=== PATIENT | male | born 1975 | race Caucasian/White ===

== ENCOUNTER 2016-08-10 10:04 | Emergency (ER) | payer MEDICAID ==
--- NOTE | 2016-08-10 10:06 | ED Physician Chart ---
Chief Complaint/HPI - Patient Information Date Seen:: 08/10/16 Time Seen:: 10:06 Chief Complaint:: cough History of Present Illness:: 41-year-old male, nonsmoker, history of insulin-dependent diabetes mellitus type 2, recent history of pneumonia several months ago, complains of acute, worsening, nonproductive, worse in the morning, moderate, cough 4 days. Has associated upper respiratory congestion. Allergies:: Allergies Allergy/AdvReac Type Severity Reaction Status Date / Time MDX No Known Allergies - Nka Allergy Verified 07/20/13 21:26 [No Known Allergies - Nka] Historian:: Patient Review:: Nurse's Note Reviewed Review of Systems - Review of Systems Other: Complete system review otherwise unremarkable except as noted in HPI. Past Medical History - Past Medical History Past Medical History: DM Family History: None Social History: Non Smoker, No Alcohol, No Drug Use, Employed Surgical History: None Psychiatricy History: None Medication: Reviewed Family Medical History - Family Member Mother History Unknown: Yes Ethnicity: Hx Family Cancer: No Hx Family Coronary Artery Disease: No Hx Family Congestive Heart Failure: No Hx Family Hypertension: Yes Hx Family Diabetes: Yes Physical Exam - Physical Examination Other:: INITIAL VITAL SIGNS: Reviewed by me GENERAL: Alert and interactive. No acute distress HEAD: Head is normocephalic and atraumatic EYES: EOMI. . No scleral icterus. No conjunctival injection ENT: Moist mucous membranes. NECK: Supple. No masses. Full range of motion RESPIRATORY: No tachypnea. Prolonged expiratory phase bilaterally. No wheezing , rales, or rhonchi CV: Regular rate and rhythm. No murmurs, rubs, or gallops ABDOMEN: Soft, non-distended, non-tender. No guarding. No rebound. No masses. EXTREMITIES: No deformity. No cyanosis. No edema. SKIN: Warm and dry. No obvious rashes. NEUROLOGIC: Alert and oriented. Face is symmetric. Speech is normal. Moves all extremities equally. Motor and sensory distally intact. Labs/Radiology/EKG Results - Radiology Results Results: Single AP VIEW Portable Chest X-ray was interpreted independently and contemporaneously by Cayden Jones MD: No cardiomegaly Normal mediastinum No lung infiltrates No pneumothorax No soft tissue or bony abnormalities ED Septic Shock - . Is Septic Shock (SBP<90, OR Lactate>4 mmol\L) present?: No Reassessment (Disposition) - Reassessment Reassessment:: The patient's blood pressure was elevated (>120/80) but appears stable without evidence of hypertensive emergency or urgency. The patient was counseled about the risks hypertension urged to pursue outpatient monitoring and therapy within a week with her primary care physician. Patient has acute bronchitis. Has a history of recent pneumonia. We'll cover with Z-Galileo. Also gave from using with codeine antitussive. Gave antitussive here in the ER as well. Symptoms improved. Follow-up PCP 1-2 days. Gave return to ER precautions. Patient understands and agrees with the plan. - Diagnosis Diagnosis:: Acute bronchitis Diabetes mellitus type 2, insulin-dependent Pre-hypertension - Aftercare/Follow up Instructions Aftercare/Follow-Up Instructions:: Counseled pt regarding lab results/diagnosis & need follow up, Refer to Discharge Instructions Medication Prescribed:: Azithromycin Promethazine/codeine antitussive syrup - Patient Disposition Discharge/Transfer:: Home Time Responded:: 10:39 Time:: 10:44 Condition at Disposition:: Improved ED Discharge Plan - Patient Disposition Admit/Discharge/Transfer: PT DISCHARGED HOME Condition at Disposition: Improved Instructions: Bronchitis, [id number]
[2016-08-10] MEDS ORDERED: Codeine/Promethazine Susp 5 mL UDC PO STA (10:22)
[2016-08-10] MEDS ORDERED: Codeine/Promethazine Susp 5 mL UDC ONE (10:28)
[2016-08-10 10:29] VITALS: BP 143/84
--- NOTE | 2016-08-10 11:20 | Diagnostic Imaging Report ---
Portable chest x-ray History: Cough Allowing for portable technique the heart size is normal. No focal pulmonary parenchymal processes. No hilar or mediastinal abnormalities. Impression: No acute abnormalities.
== END 2016-08-10 10:40 | disposition home or self-care (01) ==
LOC: ER 10:04
DX: J20.9 Acute bronchitis, unspecified (principal); E11.8 Type 2 diabetes mellitus with unspecified complications; Z79.4 Long term (current) use of insulin
CPT/HCPCS: 71010-TC; Z7502

== ENCOUNTER 2016-10-18 10:50 | Emergency (ER) | payer MEDICAID ==
[2016-10-18 11:32] LABS: % BASOPHILS 1.1 % (0.0-2.0); % EOSINOPHILS 4.1 % (0.0-5.0); % LYMPHOCYTES 28.2 % (20.0-50.0); % MONOCYTES 6.3 % (2.0-10.0); % NEUTROPHILS 60.3 % (40.0-80.0); MEAN CELL VOLUME 80.6 fl (80-99); MEAN CORPUSCULAR HEMOGLOBIN 27.5 pg (26.0-30.0); MEAN CORPUSCULAR HGB CONC 34.1 pg (28.0-36.0); MEAN PLATELET VOLUME 8.2 fl; NEUTROPHILE ABSOLUTE 4.5 Th/cmm (1.8-8.0); PLATELET COUNT 190 Th/cmm (150-400); RED BLOOD COUNT 4.25 Mil/cmm (4.30-5.70); RED CELL DISTRIBUTION WIDTH 13.4 % (11.5-20.0); WHITE BLOOD COUNT 7.5 Th/cmm (4.8-10.8)
[2016-10-18 11:34] LABS: HEMATOCRIT 34.3 % (39.0-49.0); HEMOGLOBIN 11.7 gm/dL (13.2-17.3)
--- NOTE | 2016-10-18 11:48 | ED Physician Chart ---
Chief Complaint/HPI - Patient Information Date Seen:: 10/18/16 Time Seen:: 11:15 Chief Complaint:: double vision History of Present Illness:: THIS IS A 41 YO MALE DIABETIC WITH A BRIEF PERIOD OF DOUBLE VISION THIS AM. HE STATES THAT HE HAS NEVER HAD THAT HAPPEN BEFORE. HE ALSO IS CONCERNED THAT HE VOMITED THIS AM AND STATES THAT HIS SUGAR WAS OVER 200. HE DENIES FEVER, HEADACHE, CHEST PAIN AND ABDOMINAL PAIN. THE PATIENT STATES THAT HE HAS NOT HAD ANY DIARRHEA OR CONSTIPATION. Allergies:: Allergies Allergy/AdvReac Type Severity Reaction Status Date / Time No Known Allergies Allergy Verified 08/10/16 10:14 Vitals:: Vital Signs - 8 hr 10/18/16 11:07 Temp 98.4 F HR 83 RR 17 BP 167/86 O2 Sat % 98 Historian:: Patient, Family Member Review:: Nurse's Note Reviewed Review of Systems - Review of Systems General/Constitutional: No fever, No chills, No weight loss, No weakness, No diaphoresis, No edema, No loss of appetite Skin: No skin lesions, No rash, No bruising Head: No headache, No light-headedness Eyes: No loss of vision, No pain, Diplopia, No diplopia ENT: No earache, No nasal drainage, No sore throat, No tinnitus Neck: No neck pain, No swelling, No thyromegaly, No stiffness, No mass noted Cardio Vascular: No chest pain, No palpitations, No PND, No orthopnea, No edema Pulmonary: No SOB, No cough, No sputum, No wheezing GI: Nausea, Vomiting, No diarrhea, No pain, No melena, No hematochezia, No constipation, No hematemesis G/U: No dysuria, No frequency, No hematuria Musculoskeletal: No bone or joint pain, No back pain, No muscle pain Endocrine: No polyuria, No polydipsia Psychiatric: No prior psych history, No depression, No anxiety, No suicidal ideation Hematopoietic: No bruising, No lymphadenopathy Allergic/Immuno: No urticaria, No angioedema Neurological: No syncope, No focal symptoms, No weakness, No paresthesia, No headache, No seizure, No dizziness, No confusion, No vertigo Past Medical History - Past Medical History Obtainable: Yes Past Medical History: DM Family History: None Social History: Non Smoker, No Alcohol, No Drug Use, , Employed Surgical History: other (RIGHT UPPER EXTERMITY ID SURGERY) Family Medical History - Family Member Mother History Unknown: Yes Ethnicity: Hx Family Cancer: No Hx Family Coronary Artery Disease: No Hx Family Congestive Heart Failure: No Hx Family Hypertension: Yes Hx Family Stroke: No Hx Family Diabetes: Yes Hx Family HIV: No Hx Family Hepatitis: No Hx Family Psychiatric Problems: No Other Medical History: patient denies medical history Physical Exam - Physical Examination General/Constitutional: Awake, Well-developed, well-nourished, Alert, No distress, GCS 15, Non-toxic appearing, Ambulatory Head: Atraumatic Eyes: Lids, conjuctiva normal, PERRL, EOMI Skin: Nl inspection, No rash, No skin lesions, No ecchymosis, Well hydrated, No lymphadenopathy ENMT: External ears, nose nl, Nasal exam nl, Lips, teeth, gums nl Neck: Nontender, Full ROM w/o pain, No JVD, No nuchal rigidity, No bruit, No mass, No stridor Respiratory: Nl effort/Exclusion, Clear to Auscultation, No Wheeze/Rhonchi/Rales Cardio Vascular: RRR, No murmur, gallop, rubs, NL S1 S2 GI: No tenderness/rebounding/guarding, No organomegaly, No hernia, Normal BS's, Nondistended, No mass/bruits, No McBurney tenderness : No CVA tenderness Extremities: No tenderness or effusion, Full ROM, normal strength in all extremities, No edema, Normal digits & nails Neuro/Psych: Alert/oriented, DTR's symmetric, Normal sensory exam, Normal motor strength, Judgement/insight normal, Mood normal, Normal gait, No focal deficits Misc: normal gait, Normal back, No paraspinal tenderness Labs/Radiology/EKG Results - Lab Results Results: Laboratory Tests 10/18/16 11:20 WBC 7.5 RBC 4.25 L Hgb 11.7 L D Hct 34.3 L D MCV 80.6 MCH 27.5 MCHC Differential 34.1 RDW 13.4 Plt Count 190 MPV 8.2 Neutrophils % 60.3 Lymphocytes % 28.2 Monocytes % 6.3 Eosinophils % 4.1 Basophils % 1.1 Assessment - Assessment General Assessment: THIS PATIENT'S DOUBLE VISION WAS ONLY BRIEF AND DID NOT RETURN. 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 HIS LAB RESULTS WAS DISCUSSED WITH HIM IN DETAIL. THE A1C WAS DISCUSSED WELL HIS ELEVATED RENAL FUNCTIONS AND POTASSIUM. HE WAS GIVEN IV NORMAL SALINE AND REGULAR INSULIN TO TREAT THE ELEVATED POTASSIUM. THE ANEMIA WAS ALSO DISCUSSED WITH HIM AND HE WAS TOLD THAT HIS DOCTOR NEEDS TO FIND OUT WHY HE IS ANEMIC. ED Septic Shock - . Is Septic Shock (SBP<90, OR Lactate>4 mmol\L) present?: No - <6hrs of presentation: Vital Signs: Vital Signs - 8 hr 10/18/16 11:07 Temp 98.4 F HR 83 RR 17 BP 167/86 O2 Sat % 98 Reassessment (Disposition) - Reassessment Reassessment Condition:: Improved - Diagnosis Diagnosis:: DIABETES MELLITUS RENAL FAILURE ANEMIA - Aftercare/Follow up Instructions Aftercare/Follow-Up Instructions:: Counseled pt regarding lab results/diagnosis & need follow up, Refer to Discharge Instructions, Counseled pt & family regarding lab results/diagnosis & need follow up - Patient Disposition Discharge/Transfer:: Home Condition at Disposition:: Improved
[2016-10-18 11:49] LABS: CHOLESTEROL 183 mg/dL (<200); TRIGLYCERIDES 340 mg/dL (<150)
[2016-10-18 11:56] LABS: ALB/GLOB RATIO 1.1 (1.0-1.8); ANION GAP 9.5 (7.0-16.0); BILIRUBIN,TOTAL 0.3 mg/dL (0.3-1.0); BUN/CREATININE RATIO 22.6; CALCIUM SERUM 8.9 mg/dL (8.6-10.3); CARBON DIOXIDE 22.9 mEq/L (21.0-31.0); CREATININE - SERUM 1.9 mg/dL (0.7-1.3); POTASSIUM SERUM 5.4 mEq/L (3.5-5.1)
[2016-10-18 12:07] LABS: TROP I 0.02 ng/mL (0.01-0.05)
[2016-10-18] MEDS ORDERED: Sodium Chloride 0.9% 500 ML IV ONE (12:25)
[2016-10-18] MEDS ORDERED: INSULIN HUMAN REGULAR 100 UNITS/ML UNIT SUBQ ONE (12:35)
[2016-10-18] MEDS ORDERED: INSULIN HUMAN REGULAR 100 UNITS/ML UNIT ONE (13:14)
== END 2016-10-18 13:40 | disposition home or self-care (01) ==
LOC: ER 10:50
DX: E11.22 Type 2 diabetes mellitus with diabetic chronic kidney disease (principal); N18.9 Chronic kidney disease, unspecified; D64.9 Anemia, unspecified; Z79.4 Long term (current) use of insulin
CPT/HCPCS: 36415-UA; 80053-TC; 80061-TC; 82948-90; 83036-90; 84443-TC; 84484-TC; 85025-TC; 86592-TC; 86593-TC; 86780-90; J1815; J7040; Z7502

== ENCOUNTER 2018-03-20 13:28 | Emergency (ER) | payer MEDICAID ==
--- NOTE | 2018-03-20 14:18 | Diagnostic Imaging Report ---
CHEST X-RAY: AP view INDICATION: Shortness of breath COMPARISON: Chest x-ray 08/10/2016 FINDINGS: There is mild elevation of the right hemidiaphragm with mild increased right basal lung markings. There is no focal consolidation or pleural effusions . Mild cardiomegaly is noted. Osseous structures are intact. IMPRESSION: Mild increased right basal lung markings favoring atelectasis. No focal consolidation identified. Mild cardiomegaly.
[2018-03-20 14:22] LABS: % BASOPHILS 1.3 % (0.0-2.0); % EOSINOPHILS 4.5 % (0.0-5.0); % LYMPHOCYTES 27.6 % (20.0-50.0); % MONOCYTES 6.9 % (2.0-10.0); % NEUTROPHILS 59.7 % (40.0-80.0); BASOPHILE ABSOLUTE 0.1 Th/cumm (0-0.2); EOSINOPHILE ABSOLUTE 0.4 Th/cmm (0.1-0.4); HEMATOCRIT 29.8 % (41.0-60); HEMOGLOBIN 10.1 gm/dL (12-16); LYMPHOCYTE ABSOLUTE 2.3 Th/cmm (1.5-3.0); MEAN CELL VOLUME 85.9 fl (80-99); MEAN CORPUSCULAR HEMOGLOBIN 29.2 pg (26.0-30.0); MEAN PLATELET VOLUME 7.9 fl; MONOCYTE ABSOLUTE 0.6 Th/cmm (0.3-1.0); NEUTROPHILE ABSOLUTE 4.8 Th/cmm (1.8-8.0); PLATELET COUNT 254 Th/cmm (150-400); RED BLOOD COUNT 3.47 Mil/cmm (4.30-5.70); RED CELL DISTRIBUTION WIDTH 13.1 % (11.5-20.0); WHITE BLOOD COUNT 8.2 Th/cmm (4.8-10.8)
[2018-03-20 14:39] LABS: ALB/GLOB RATIO 1.1 (1.0-1.8); ALBUMIN 3.2 gm/dL (4.2-5.5); BILIRUBIN,TOTAL 0.2 mg/dL (0.3-1.0); CALCIUM SERUM 8.7 mg/dL (8.6-10.3); CARBON DIOXIDE 21.1 mEq/L (21.0-31.0); GFR AFRICAN-AMERICAN 47.4 ml/min (>90); GFR NON AFRICAN-AMERICAN 39.1 ml/min; MAGNESIUM 2.2 mg/dL (1.9-2.7); PHOSPHOROUS 4.7 mg/dL (2.5-5.0); POTASSIUM SERUM 5.1 mEq/L (3.5-5.1); TOTAL PROTEIN,SERUM 6.1 gm/dL (6.0-8.3)
[2018-03-20 15:08] LABS: URINE SOURCE CLEAN C
[2018-03-20 15:11] LABS: URINE BILIRUBIN NEGATIVE (NEGATIVE); URINE BLOOD MODERATE (NEGATIVE); URINE GLUCOSE (UA) 500 mg/dL (NEGATIVE); URINE KETONE NEGATIVE (NEGATIVE); URINE LEUKOCYTE ESTERASE NEGATIVE (NEGATIVE); URINE MICROSCOPIC INDICATED? YES; URINE NITRATE NEGATIVE (NEGATIVE); URINE PROTEIN >=300 mg/dL (NEGATIVE); URINE UROBILINOGEN 0.2 E.U./dL (0.2 - 1.0)
[2018-03-20 15:16] LABS: URINE CLARITY CLEAR (CLEAR); URINE COLOR YELLOW
[2018-03-20 15:17] LABS: URINE BACTERIA FEW /hpf (NONE SEEN); URINE EPITHELIAL CELLS MODERATE /lpf (FEW)
[2018-03-20 15:46] LABS: INR 0.95 (0.5-1.4); PROTHROMBIN TIME (TEST) 9.9 SECONDS (9.5-11.5)
--- NOTE | 2018-03-20 16:23 | ED Physician Chart ---
ED Chief Complaint/HPI - Patient Information Date Seen:: 03/20/18 Time Seen:: 13:43 Chief Complaint:: BLE swelling with occas sob History of Present Illness:: BLE swelling with occas sob in a man with a h/o RLE DVT in 2013. poorly controlled diabetes mellitus. Allergies:: Allergies Allergy/AdvReac Type Severity Reaction Status Date / Time No Known Allergies Allergy Verified 03/20/18 13:54 Vitals:: Vital Signs - 8 hr 03/20/18 13:43 Temp 98.0 F HR 86 RR 16 BP 165/71 O2 Sat % 98 Historian:: Patient, Family Member Review:: Nurse's Note Reviewed ED Review of Systems - Review of Systems General/Constitutional: No fever, No chills, No weight loss, No weakness, No diaphoresis, No edema, No loss of appetite Skin: No skin lesions, No rash, No bruising Head: No headache, No light-headedness Eyes: No loss of vision, No pain, No diplopia ENT: No earache, No nasal drainage, No sore throat, No tinnitus Neck: No neck pain, No swelling, No thyromegaly, No stiffness, No mass noted Cardio Vascular: No chest pain, No palpitations, No PND, No orthopnea, No edema Pulmonary: SOB, Other (occasional sob. sleeps on his abdomen.) GI: No nausea, No vomiting, No diarrhea, No pain, No melena, No hematochezia, No constipation, No hematemesis G/U: No dysuria, No frequency, No hematuria Musculoskeletal: No bone or joint pain, No back pain, No muscle pain, Other ( BLE swelling) Endocrine: No polyuria, No polydipsia Psychiatric: No prior psych history, No depression, No anxiety, No suicidal ideation Hematopoietic: No bruising, No lymphadenopathy Allergic/Immuno: No urticaria, No angioedema Neurological: No syncope, No focal symptoms, No weakness, No paresthesia, No headache, No seizure, No dizziness, No confusion, No vertigo ED Past Medical History - Past Medical History Obtainable: Yes Past Medical History: No significant medical hx, DM, DVT/PE, Dyslipidemia, Other Family Medical History - Family Member Mother History Unknown: Yes Ethnicity: Hx Family Cancer: No Hx Family Coronary Artery Disease: No Hx Family Congestive Heart Failure: No Hx Family Hypertension: Yes Hx Family Stroke: No Hx Family Diabetes: Yes Hx Family HIV: No Hx Family Hepatitis: No Hx Family Psychiatric Problems: No ED Physical Exam - Physical Examination General/Constitutional: Awake, Alert, No distress, GCS 15 Other Gen/Cons comments:: overweight. coloring not good. Head: Atraumatic Eyes: Lids, conjuctiva normal, PERRL, EOMI Skin: Nl inspection, No rash, No skin lesions, No ecchymosis, Well hydrated, No lymphadenopathy ENMT: External ears, nose nl Neck: Nontender, Full ROM w/o pain, No JVD, No nuchal rigidity, No bruit, No mass, No stridor Respiratory: Nl effort/Exclusion, Clear to Auscultation, No Wheeze/Rhonchi/Rales Cardio Vascular: RRR, No murmur, gallop, rubs, NL S1 S2 GI: No tenderness/rebounding/guarding, No organomegaly, No hernia, Normal BS's, Nondistended, No mass/bruits, No McBurney tenderness : No CVA tenderness Extremities: No tenderness or effusion, Full ROM, normal strength in all extremities, No edema, Normal digits & nails Other Extremities comments:: 3+ swelling of BLE. equivocal Geraldine's and calf tenderness. Neuro/Psych: Alert/oriented, Normal sensory exam, Normal motor strength, Judgement/insight normal, Mood normal, Normal gait, No focal deficits Misc: Normal back, No paraspinal tenderness ED Labs/Radiology/EKG Results - Lab Results Results: Laboratory Tests 03/20/18 03/20/18 03/20/18 14:13 14:13 14:13 WBC 8.2 RBC 3.47 L Hgb 10.1 L Hct 29.8 L MCV 85.9 MCH 29.2 MCHC Differential 34.0 RDW 13.1 Plt Count 254 MPV 7.9 Neutrophils % 59.7 Lymphocytes % 27.6 Monocytes % 6.9 Eosinophils % 4.5 Basophils % 1.3 PT INR PTT (Actin FS) D-Dimer 328 Sodium 134 L Potassium 5.1 Chloride 106 Carbon Dioxide 21.1 Anion Gap 12.0 BUN 40 H Creatinine 2.0 H Est GFR ( Amer) 47.4 Est GFR (Non-Af Amer) 39.1 BUN/Creatinine Ratio 20.0 Glucose 211 H Whole Bld Lactic Acid Calcium 8.7 Phosphorus 4.7 Magnesium 2.2 Total Bilirubin 0.2 L AST 15 ALT 16 Alkaline Phosphatase 122 H Troponin I B-Natriuretic Peptide 189.0 H Total Protein 6.1 Albumin 3.2 L Globulin 2.9 Albumin/Globulin Ratio 1.1 TSH Urine Source Urine Color Urine Clarity Urine pH Ur Specific Brooks Urine Protein Urine Glucose (UA) Urine Ketones Urine Blood Urine Nitrate Urine Bilirubin Urine Urobilinogen Ur Leukocyte Esterase Urine RBC Urine WBC Ur Epithelial Cells Urine Bacteria Urine Mucus 03/20/18 03/20/18 03/20/18 14:13 14:13 14:50 WBC RBC Hgb Hct MCV MCH MCHC Differential RDW Plt Count MPV Neutrophils % Lymphocytes % Monocytes % Eosinophils % Basophils % PT INR PTT (Actin FS) D-Dimer Sodium Potassium Chloride Carbon Dioxide Anion Gap BUN Creatinine Est GFR ( Amer) Est GFR (Non-Af Amer) BUN/Creatinine Ratio Glucose Whole Bld Lactic Acid 1.06 Calcium Phosphorus Magnesium Total Bilirubin AST ALT Alkaline Phosphatase Troponin I 0.01 B-Natriuretic Peptide Total Protein Albumin Globulin Albumin/Globulin Ratio TSH 2.66 Urine Source Urine Color Urine Clarity Urine pH Ur Specific Brooks Urine Protein Urine Glucose (UA) Urine Ketones Urine Blood Urine Nitrate Urine Bilirubin Urine Urobilinogen Ur Leukocyte Esterase Urine RBC Urine WBC Ur Epithelial Cells Urine Bacteria Urine Mucus 03/20/18 03/20/18 15:07 15:22 WBC RBC Hgb Hct MCV MCH MCHC Differential RDW Plt Count MPV Neutrophils % Lymphocytes % Monocytes % Eosinophils % Basophils % PT 9.9 INR 0.95 PTT (Actin FS) 40.7 H D-Dimer Sodium Potassium Chloride Carbon Dioxide Anion Gap BUN Creatinine Est GFR ( Amer) Est GFR (Non-Af Amer) BUN/Creatinine Ratio Glucose Whole Bld Lactic Acid Calcium Phosphorus Magnesium Total Bilirubin AST ALT Alkaline Phosphatase Troponin I B-Natriuretic Peptide Total Protein Albumin Globulin Albumin/Globulin Ratio TSH Urine Source CLEAN C Urine Color YELLOW Urine Clarity CLEAR Urine pH 6.0 Ur Specific Brooks 1.025 Urine Protein >=300 Urine Glucose (UA) 500 H Urine Ketones NEGATIVE Urine Blood MODERATE H Urine Nitrate NEGATIVE Urine Bilirubin NEGATIVE Urine Urobilinogen 0.2 Ur Leukocyte Esterase NEGATIVE Urine RBC 5-10 H Urine WBC 2-5 Ur Epithelial Cells MODERATE Urine Bacteria FEW Urine Mucus FEW ED Assessment - Assessment General Assessment: Abdominal CT scan: no free fluid, no hydro, appendix normal, no diverticulitis. Assessment/Comments:: Ultrasound of both lower extremities negative for DVT. ED Septic Shock - . Is Septic Shock (SBP<90, OR Lactate>4 mmol\L) present?: No - <6hrs of presentation: Vital Signs: Vital Signs - 8 hr 03/20/18 13:43 Temp 98.0 F HR 86 RR 16 BP 165/71 O2 Sat % 98 ED Reassessment (Disposition) - Reassessment Reassessment Condition:: Improved - Diagnosis Diagnosis:: BLE swelling without evidence of DVT - Aftercare/Follow up Instructions Aftercare/Follow-Up Instructions:: Refer to Discharge Instructions, Counseled pt & family regarding lab results/diagnosis & need follow up Notes:: avoid all salt and caffeine. follow your diabetic diet. follow up with your primary care physician within the next 2 days for further work up for your heart (echocardiogram and other testing); work up for blood your urine (urologist); work up for possible coagulopathy (possible von Willebrand's disease) since you have blood your urine and an elevated PTT. Medication Prescribed:: none indicated. - Patient Disposition Discharge/Transfer:: Home Condition at Disposition:: Stable, Improved
--- NOTE | 2018-03-21 08:33 | Diagnostic Imaging Report ---
Bilateral lower extremity DVT study HISTORY: Bilateral lower extremity swelling, history of DVT COMPARISON: None Technique: Longitudinal and transverse sonographic images of the bilateral lower extremity veins were obtained with doppler analysis. FINDINGS: There is normal compressibility, augmentation and phasicity of the bilateral common femoral, superficial femoral, popliteal, and posterior tibial veins. No thrombus is visualized. IMPRESSION: No evidence of thrombus within the bilateral lower extremity veins.
--- NOTE | 2018-03-21 08:51 | Diagnostic Imaging Report ---
CT abdomen and pelvis without intravenous contrast Indication: Hematuria, bilateral lower extremity swelling Comparison: None, Technique: Axial images were obtained from the lung bases to the bilateral proximal femurs without IV contrast. Coronal reconstructions were made. total DLP: [id number], CTDI12.9 FINDINGS: Hypoventilatory and atelectatic changes of the lung bases are noted. There is a 5 mm nodule along the right lung base along the pleural (image 24, series 5). Additional few small based 3 to 4 mm left pleural nodules are also noted. Assessment of the solid organs is limited due to lack of IV contrast. No evidence of focal hepatic, splenic, or pancreatic lesions. Few small calcifications are seen which are probably adjacent to the pancreas and may be vascular in etiology or due to old inflammatory process. No focal adrenal lesions. There are mild bilateral perinephric inflammatory changes. No hydronephrosis or evidence of radiopaque renal stones. There is mild thickening of the urinary bladder wall. Small fat-containing right inguinal hernia is noted. Moderate stool is seen throughout the colon. No appendicitis. Nonspecific air-fluid gas-filled loops of bowel are noted. No free air. Few borderline prominent retroperitoneal are noted. Degenerative changes of the spine mild degenerate changes spine are noted. IMPRESSION: No evidence of hydronephrosis or radiopaque renal stones. Mild nonspecific bilateral perinephric inflammatory changes. There is also mild prominence of the bladder wall. Inflammatory/UTI cannot be excluded. Please correlate with clinical findings. No evidence of free fluid. Moderate stool. No evidence of bowel obstruction. Small fat-containing right inguinal hernia Small bibasal lung nodules greatest along the right base measuring up to 5 mm along the right pleura. Findings may be due to previous infectious or inflammatory process. Please correlate clinically and with old exams. A follow-up CT surveillance exam is 6 months is recommended to ensure long-term assessment/monitoring.
== END 2018-03-20 16:47 | disposition home or self-care (01) ==
LOC: ER 13:28
DX: M79.89 Other specified soft tissue disorders (principal); M79.605 Pain in left leg; M79.604 Pain in right leg; E11.9 Type 2 diabetes mellitus without complications; E78.5 Hyperlipidemia, unspecified; Z86.718 Personal history of other venous thrombosis and embolism
CPT/HCPCS: 36415-UA; 71045-TC; 80053-TC; 81001-TC; 83036-90; 83605; 83735-TC; 83880-TC; 84100-TC; 84443-TC; 84484-TC; 85025-TC; 85379-TC; 85610-TC; 87086-90; 93005; 93970-TC-50